=== PATIENT | male | born 1975 | race Caucasian/White ===

== ENCOUNTER → 2016-12-14 | Outpatient (CLI) | payer BC | LOC: COL.RAD 12-13 10:30 | DX: R10.11 Right upper quadrant pain (principal) ==

== ENCOUNTER → 2016-12-19 | Outpatient (CLI) | payer BC | LOC: COL.RAD 11:54 | DX: R10.11 Right upper quadrant pain (principal) | CPT/HCPCS: A9537 ==

== ENCOUNTER → 2018-06-23 | Outpatient (CLI) | payer BC | LOC: COL.RAD 07:55 | DX: R10.12 Left upper quadrant pain (principal) | CPT/HCPCS: Q9967 ==